=== PATIENT | female | born 1935 | race Caucasian/White ===

== ENCOUNTER 2016-01-22 09:51 | Outpatient (RCR) | payer OTHER ==
[~2016-01-22 09:51] MED LIST: ASPIRIN 32325 MG/TAB PO; CALCIUM1 CAP PO; FLEXERIL 1010 MG/TAB PO; INHALER; IPRATROPIUM BROM3 M1 IH; LASIX 40MG TABL40 MG PO; LEVAQUIN 5500 MG/TA1 PO; LORTAB 5/500 501 TAB PO; MOTRIN JUNIOR100 M1 PO; MULTIVITAMIN FO1 CAP PO; NAPROSYN500 MG PO; PERCOCET 325 MG1 TA2 PO; PREDNISONE 5MG5 MG PO; PREDNISONE20 MG PO; PROAIR HFA0.09 MG/AC; PROAIR HFA0.09 MG/AC IH; RT ADVAIR 228 DISKUS; TYLENOL 500MG500 MG PO; TYLENOL EXTRA500 M1 PO; ZOFRAN 4MG T4 MG/TAB PO; ZYRTEC 10MG10 MG PO
== END 2016-04-21 ==
LOC: WSOH
DX: S61.451D Open bite of right hand, subsequent encounter (principal)

== ENCOUNTER → 2016-09-13 | Outpatient (CLI) | payer OTHER, MEDICARE | LOC: MC.RAD 10:40 | DX: Z12.31 Encounter for screening mammogram for malignant neoplasm of breast (principal) ==

== ENCOUNTER 2017-06-24 16:19 | Inpatient (IN) | payer BC, MEDICARE ==
[~2017-06-24] VITALS: Ht 152.4 cm; Wt 64.0 kg
[2017-06-24] MEDS ORDERED: PROAIR HFA0.09 MG/AC IH (16:49)
[2017-06-24] MEDS ORDERED: LEVAQUIN 5500 MG/TA1 PO (16:52)
[2017-06-24] MEDS ORDERED: TUSS PO (16:52)
[2017-06-24 16:57] LABS: BASO % 0.4 % (0.0-2.0); EOS # 0.1 (0.0-0.7); EOS % 1.9 % (0-4.0); GRAN # 4.9 (1.4-6.5); GRAN % 70.2 % (42.2-75.2); HEMATOCRIT 36.3 % (37.0-47.0); HEMOGLOBIN 11.7 g/dl (12.5-16.0); LYMPH # 1.4 (1.2-3.4); LYMPH % 19.8 % (20.0-51.0); MEAN CELL VOLUME 93 fl (80.0-100.0); MEAN CORPUSCULAR HEMOGLOBIN 30 pg (27.0-31.0); MEAN CORPUSCULAR HGB CONC 32 g/dl (33.0-37.0); MEAN PLATELET VOLUME 9.4 fl (7.4-10.4); MONO # 0.4 (0.1-0.6); MONO % 5.5 % (1.7-9.3); PLATELET COUNT 320 K/mm3 (130-400); RED BLOOD COUNT 3.89 M/mm3 (4.10-5.30); REDCELL DISTRIBUTION WIDTH-CV 12.5 % (11.5-14.5)
[2017-06-24 17:01] LABS: INR 1.2 (0.8-3.0)
[2017-06-24 17:09] LABS: ALANINE AMINOTRANSFERASE 43 U/L (9-52); ALKALINE PHOSPHATASE 75 U/L (50-136); ANION GAP 12 mmol/L (7-16); AST,SGOT 21 U/L (15-37); BILIRUBIN,TOTAL 0.2 mg/dL (0.0-1.0); BLOOD UREA NITROGEN 23 mg/dL (7-17); CALCIUM 9.9 mg/dL (8.4-10.2); CARBON DIOXIDE 25 mmol/L (22-30); CHLORIDE 103 mmol/L (98-107); CREATININE, serum 1.11 mg/dL (0.52-1.25); GLUCOSE 112 mg/dL (74-106); POTASSIUM 4.2 mmol/L (3.4-5.0); SODIUM 140 mmol/L (137-145); TOTAL PROTEIN 7.3 gm/dL (6.4-8.2)
[2017-06-24 17:26] LABS: TROPONIN-I < 0.012 ng/mL (0.000-0.034)
[2017-06-24 18:01] LABS: COLLECTION METHOD CLEAN CATCH
[2017-06-24 18:16] LABS: MUCOUS Present /lpf; PH 5 (5-8); SQUAMOUS EPITHELIAL 0-2 /hpf; URINE APPEARANCE Clear; URINE BACTERIA Rare /hpf; URINE BILIRUBIN Negative (NEGATIVE); URINE BLOOD Negative (NEGATIVE); URINE COLOR Yellow; URINE GLUCOSE Negative (NEGATIVE); URINE KETONE Negative (NEGATIVE); URINE LEUKOCYTE ESTERASE Negative (NEGATIVE); URINE NITRATE Negative (NEGATIVE); URINE PROTEIN(semi-quant) Negative (NEGATIVE); URINE UROBILINOGEN Negative (NEGATIVE)
[2017-06-24 20:20] VITALS: BP 119/64; PULSE 85; TEMP 85; TEMP 97.5; TEMP 98.5
[2017-06-25 01:02] VITALS: BP 99/64; PULSE 79; TEMP 98.2
[2017-06-25 05:09] VITALS: BP 141/85; PULSE 74; TEMP 98.7
[2017-06-25 06:56] LABS: MEAN CELL VOLUME 93 fl (80.0-100.0); MEAN CORPUSCULAR HGB CONC 32 g/dl (33.0-37.0); MEAN PLATELET VOLUME 9.5 fl (7.4-10.4); PLATELET COUNT 288 K/mm3 (130-400); RED BLOOD COUNT 3.32 M/mm3 (4.10-5.30); REDCELL DISTRIBUTION WIDTH-CV 12.5 % (11.5-14.5)
[2017-06-25 07:01] LABS: CALCIUM 8.9 mg/dL (8.4-10.2); CREATININE, serum 1.08 mg/dL (0.52-1.25); POTASSIUM 4.2 mmol/L (3.4-5.0)
[2017-06-25 07:11] LABS: HEMATOCRIT 30.8 % (37.0-47.0); HEMOGLOBIN 9.9 g/dl (12.5-16.0); MEAN CORPUSCULAR HEMOGLOBIN 30 pg (27.0-31.0)
[2017-06-25 07:36] VITALS: BP 135/51; PULSE 76; TEMP 98.4
[2017-06-25 09:45] LABS: BAND 4 % (0-10); BASOPHIL 1 % (0-2); LYMPHOCYTE 31 % (20.0-51.0); MYELOCYTE 1 % (0-0); NEUTROPHILS 63 % (42.0-75.2); OVALOCYTES 1+; PLATELET ESTIMATE NORMAL (NORMAL)
[2017-06-25 11:56] VITALS: BP 129/53; PULSE 68; TEMP 98
[2017-06-25 15:10] VITALS: BP 111/40; PULSE 80; TEMP 98.7
[2017-06-25 20:26] VITALS: BP 143/44; PULSE 93; TEMP 98.7
[2017-06-26] VITALS (7 sets, daily range): BP systolic 108–136; BP diastolic 42–61; PULSE 62–81; TEMP 98.1–98.9
[2017-06-26 06:53] LABS: BASO % 0.5 % (0.0-2.0); EOS # 0.2 (0.0-0.7); EOS % 2.7 % (0-4.0); GRAN # 3.5 (1.4-6.5); GRAN % 61.9 % (42.2-75.2); LYMPH # 1.7 (1.2-3.4); LYMPH % 29.3 % (20.0-51.0); MEAN CELL VOLUME 93 fl (80.0-100.0); MEAN CORPUSCULAR HGB CONC 32 g/dl (33.0-37.0); MEAN PLATELET VOLUME 9.8 fl (7.4-10.4); MONO # 0.2 (0.1-0.6); MONO % 4.2 % (1.7-9.3); PLATELET COUNT 318 K/mm3 (130-400); REDCELL DISTRIBUTION WIDTH-CV 12.5 % (11.5-14.5)
[2017-06-26 07:09] LABS: CALCIUM 8.8 mg/dL (8.4-10.2); CREATININE, serum 1.01 mg/dL (0.52-1.25); PHOSPHOROUS 3.4 mg/dL (2.5-4.5); POTASSIUM 3.7 mmol/L (3.4-5.0)
[2017-06-26 07:10] LABS: HEMATOCRIT 32.7 % (37.0-47.0); HEMOGLOBIN 10.4 g/dl (12.5-16.0); MEAN CORPUSCULAR HEMOGLOBIN 30 pg (27.0-31.0)
[2017-06-27 04:22] VITALS: BP 130/65; PULSE 66; TEMP 98.6
[2017-06-27 06:45] LABS: BASO % 0.7 % (0.0-2.0); EOS # 0.2 (0.0-0.7); EOS % 2.8 % (0-4.0); GRAN # 4.1 (1.4-6.5); GRAN % 69.1 % (42.2-75.2); LYMPH # 1.3 (1.2-3.4); LYMPH % 21.9 % (20.0-51.0); MEAN CELL VOLUME 94 fl (80.0-100.0); MEAN CORPUSCULAR HGB CONC 32 g/dl (33.0-37.0); MEAN PLATELET VOLUME 9.9 fl (7.4-10.4); MONO # 0.3 (0.1-0.6); MONO % 4.7 % (1.7-9.3); PLATELET COUNT 294 K/mm3 (130-400); RED BLOOD COUNT 3.29 M/mm3 (4.10-5.30); REDCELL DISTRIBUTION WIDTH-CV 12.4 % (11.5-14.5)
[2017-06-27 07:00] LABS: CALCIUM 8.9 mg/dL (8.4-10.2); CREATININE, serum 1.03 mg/dL (0.52-1.25); MAGNESIUM 1.9 mg/dL (1.6-2.3); PHOSPHOROUS 3.8 mg/dL (2.5-4.5)
[2017-06-27 07:02] LABS: HEMATOCRIT 30.9 % (37.0-47.0); HEMOGLOBIN 9.9 g/dl (12.5-16.0); MEAN CORPUSCULAR HEMOGLOBIN 30 pg (27.0-31.0)
[2017-06-27 07:03] LABS: POTASSIUM 4.2 mmol/L (3.4-5.0)
[2017-06-27 08:13] VITALS: BP 130/52; PULSE 93; TEMP 98.6
[2017-06-27 11:25] VITALS: BP 129/54; PULSE 84; TEMP 99
[2017-06-27 15:34] VITALS: BP 140/60; PULSE 67; TEMP 98.6
[2017-06-27 20:05] VITALS: BP 150/57; PULSE 82; TEMP 98.6
[2017-06-28 00:52] VITALS: BP 141/61; PULSE 74; TEMP 98.6
[2017-06-28 04:57] VITALS: BP 112/95; PULSE 81; TEMP 98.6
[2017-06-28 06:35] LABS: BASO % 0.5 % (0.0-2.0); EOS # 0.2 (0.0-0.7); EOS % 2.3 % (0-4.0); GRAN # 4.9 (1.4-6.5); GRAN % 76.6 % (42.2-75.2); LYMPH # 1.1 (1.2-3.4); LYMPH % 16.4 % (20.0-51.0); MEAN CELL VOLUME 93 fl (80.0-100.0); MEAN CORPUSCULAR HGB CONC 32 g/dl (33.0-37.0); MONO # 0.2 (0.1-0.6); MONO % 3.6 % (1.7-9.3); PLATELET COUNT 307 K/mm3 (130-400); RED BLOOD COUNT 3.28 M/mm3 (4.10-5.30); REDCELL DISTRIBUTION WIDTH-CV 12.7 % (11.5-14.5)
[2017-06-28 06:37] LABS: HEMATOCRIT 30.6 % (37.0-47.0); HEMOGLOBIN 9.8 g/dl (12.5-16.0); MEAN CORPUSCULAR HEMOGLOBIN 30 pg (27.0-31.0)
[2017-06-28 06:52] LABS: CALCIUM 9.1 mg/dL (8.4-10.2); CREATININE, serum 0.93 mg/dL (0.52-1.25)
[2017-06-28 08:16] VITALS: BP 116/57; PULSE 98; TEMP 98.4
[2017-06-28 11:10] VITALS: BP 131/54; PULSE 79; TEMP 98.1
[2017-06-28 16:05] VITALS: BP 123/57; PULSE 85; TEMP 98.5
[2017-06-28 19:46] VITALS: BP 141/59; PULSE 90; TEMP 98.6
[2017-06-29 00:05] VITALS: BP 130/40; PULSE 77; TEMP 98.6
[2017-06-29 05:02] VITALS: BP 136/68; PULSE 76; TEMP 98.5
[2017-06-29 06:51] LABS: BASO % 0.5 % (0.0-2.0); EOS # 0.2 (0.0-0.7); EOS % 3.4 % (0-4.0); GRAN # 4.7 (1.4-6.5); GRAN % 73.9 % (42.2-75.2); LYMPH # 1.1 (1.2-3.4); LYMPH % 17.2 % (20.0-51.0); MEAN CELL VOLUME 93 fl (80.0-100.0); MEAN CORPUSCULAR HGB CONC 32 g/dl (33.0-37.0); MEAN PLATELET VOLUME 9.7 fl (7.4-10.4); MONO # 0.3 (0.1-0.6); MONO % 4.4 % (1.7-9.3); PLATELET COUNT 297 K/mm3 (130-400); RED BLOOD COUNT 3.15 M/mm3 (4.10-5.30); REDCELL DISTRIBUTION WIDTH-CV 12.9 % (11.5-14.5)
[2017-06-29 07:04] LABS: CALCIUM 9.1 mg/dL (8.4-10.2); CREATININE, serum 0.91 mg/dL (0.52-1.25); POTASSIUM 3.7 mmol/L (3.4-5.0)
[2017-06-29 07:14] LABS: HEMATOCRIT 29.4 % (37.0-47.0); HEMOGLOBIN 9.4 g/dl (12.5-16.0); MEAN CORPUSCULAR HEMOGLOBIN 30 pg (27.0-31.0)
[2017-06-29 07:40] VITALS: BP 139/60; PULSE 87; TEMP 98.7
[2017-06-29] MEDS ORDERED: MUCINEX1200 MG PO (09:36)
[2017-06-29] MEDS ORDERED: PROBIOTIC ACID1 EAC3 PO (09:36)
[2017-06-29] MEDS ORDERED: Florastor PO (09:37)
[2017-06-29] MEDS ORDERED: ZOSYN 50 ML50 ML IV (09:44)
[2017-06-29] MEDS ORDERED: VANCOCIN HCL1 GM IV (09:44)
[2017-06-29 11:31] VITALS: BP 117/41; PULSE 88; TEMP 98.4
[2017-06-29] MEDS ORDERED: VANCOCIN HCL 5200 ML IV (13:23)
[2017-06-29 15:26] VITALS: BP 150/88; PULSE 81; TEMP 98
== END 2017-06-29 17:30 | disposition home or self-care (01) | DRG 194 ==
LOC: COL.ER 16:19 → MEDICAL 18:37
PROVIDERS: Emergency Medicine; Internal Medicine; Nurse Practitioner; Physician Assistant
PROC: 02HV33Z Insertion of Infusion Device into Superior Vena Cava, Percutaneous Approach (ICD-10-PCS; principal; 2017-06-27)
DX: J18.9 Pneumonia, unspecified organism (principal); J44.0 Chronic obstructive pulmonary disease with (acute) lower respiratory infection; D64.9 Anemia, unspecified; Z87.891 Personal history of nicotine dependence
CPT/HCPCS: 99222; 99222-AI; 99231-AI; 99232-AI; 99233-AI; 99239; C1751; C1894; J0456; J0696; J1644; J1650; J2543; J3370; J7030; J7050

== ENCOUNTER → 2017-07-01 | Outpatient (CLI) | payer BC, MEDICARE ==
[~2017-07-01] MED LIST changes: +Florastor PO; +MUCINEX1200 MG PO; +PROBIOTIC ACID1 EAC3 PO; +TUSS PO; +VANCOCIN HCL 5200 ML IV; +VANCOCIN HCL1 GM IV; +ZOSYN 50 ML50 ML IV
[2017-07-01 15:56] LABS: CALCIUM 9.1 mg/dL (8.4-10.2); CREATININE, serum 0.96 mg/dL (0.52-1.25)
[2017-07-01 16:14] LABS: VANCOMYCIN TROUGH 24.2 ug/mL (7.00-20.00)
== END ==
LOC: ZCOL.LAB 15:51
PROVIDERS: Family Medicine
DX: Z51.81 Encounter for therapeutic drug level monitoring (principal); J18.9 Pneumonia, unspecified organism

== ENCOUNTER → 2017-07-04 | Outpatient (CLI) | payer BC, MEDICARE | LOC: ZCOL.LAB 15:53 | DX: J18.9 Pneumonia, unspecified organism (principal); Z51.81 Encounter for therapeutic drug level monitoring ==

== ENCOUNTER → 2017-08-30 | Outpatient (CLI) | payer BC, MEDICARE ==
[2017-08-30 17:56] LABS: HEMOGLOBIN 11.1 g/dl (12.5-16.0); MEAN CELL VOLUME 91 fl (80.0-100.0); MEAN CORPUSCULAR HEMOGLOBIN 30 pg (27.0-31.0); MEAN CORPUSCULAR HGB CONC 33 g/dl (33.0-37.0); PLATELET COUNT 238 K/mm3 (130-400); RED BLOOD COUNT 3.71 M/mm3 (4.10-5.30); REDCELL DISTRIBUTION WIDTH-CV 13.7 % (11.5-14.5)
[2017-08-30 17:58] LABS: HEMATOCRIT 33.7 % (37.0-47.0)
[2017-08-31 15:14] LABS: PROCALCITONIN 0.06 ng/mL (0.00-0.09)
== END ==
LOC: COL.LAB 17:31
PROVIDERS: Internal Medicine Pulmonary Disease
DX: R05 Cough (principal)

== ENCOUNTER 2019-05-26 11:13 | Emergency (ER) | payer MEDICARE, OTHER ==
[~2019-05-26] VITALS: Ht 152.4 cm; Wt 64.5 kg
[~2019-05-26 11:13] MED LIST changes: +MOTRIN 400400 MG/TAB PO; +OMNICEF 300MG300 MG PO; +PROTONIX 40MG T40 MG PO; +SORE THROAT LOZ1 LO1 MM
[2019-05-26] MEDS ORDERED: VITAMIN D 50,1.25 MG PO (11:58)
[2019-05-26] MEDS ORDERED: CALCIUM CARB500 MG PO (11:58)
[2019-05-26 12:29] LABS: ALANINE AMINOTRANSFERASE 14 U/L (9-52); ALBUMIN 4.3 gm/dL (3.5-5.0); ALKALINE PHOSPHATASE 83 U/L (50-136); ANION GAP 7 mmol/L (7-16); AST,SGOT 25 U/L (15-37); BILIRUBIN,TOTAL 0.4 mg/dL (0.0-1.0); BLOOD UREA NITROGEN 28 mg/dL (7-17); CALCIUM 9.9 mg/dL (8.4-10.2); CARBON DIOXIDE 27 mmol/L (22-30); CHLORIDE 107 mmol/L (98-107); CREATININE, serum 1.01 (0.52-1.25); GLUCOSE 102 mg/dL (74-106); MAGNESIUM 1.8 mg/dL (1.6-2.3); POTASSIUM 4.1 mmol/L (3.4-5.0); SODIUM 141 mmol/L (137-145); TOTAL PROTEIN 7.4 gm/dL (6.4-8.2)
[2019-05-26 12:32] LABS: BASO % 0.4 % (0.0-2.0); EOS # 0.1 (0.0-0.7); EOS % 1.7 % (0-4.0); GRAN # 3.6 (1.4-6.5); GRAN % 66.6 % (42.2-75.2); HEMATOCRIT 37.8 % (37.0-47.0); HEMOGLOBIN 12.2 g/dl (12.5-16.0); LYMPH # 1.4 (1.2-3.4); LYMPH % 25.2 % (20.0-51.0); MEAN CELL VOLUME 93 fl (80.0-100.0); MEAN CORPUSCULAR HEMOGLOBIN 30 pg (27.0-31.0); MEAN CORPUSCULAR HGB CONC 32 g/dl (33.0-37.0); MEAN PLATELET VOLUME 10.7 fl (7.4-10.4); MONO # 0.3 (0.1-0.6); MONO % 5.7 % (1.7-9.3); PLATELET COUNT 240 K/mm3 (130-400); RED BLOOD COUNT 4.05 M/mm3 (4.10-5.30); REDCELL DISTRIBUTION WIDTH-CV 12.9 % (11.5-14.5)
[2019-05-26 12:41] LABS: C-REACTIVE PROTEIN < 0.5 mg/dL (0.0-0.9)
[2019-05-26 13:45] LABS: COLLECTION METHOD CLEAN CATCH
[2019-05-26 14:17] LABS: MUCOUS Present /lpf; PH 6 (5-8); SQUAMOUS EPITHELIAL None Seen /hpf; URINE APPEARANCE Cloudy; URINE BACTERIA None Seen /hpf; URINE BILIRUBIN Negative (NEGATIVE); URINE BLOOD 3+ (NEGATIVE); URINE COLOR Amber; URINE GLUCOSE Negative (NEGATIVE); URINE KETONE Negative (NEGATIVE); URINE LEUKOCYTE ESTERASE Negative (NEGATIVE); URINE NITRATE Negative (NEGATIVE); URINE PROTEIN(semi-quant) 2+ (NEGATIVE); URINE RBC >50 /hpf; URINE UROBILINOGEN Negative (NEGATIVE)
[2019-05-26] MEDS ORDERED: CEFTIN500 MG PO (15:07)
[2019-05-26 15:30] VITALS: BP 152/72; PULSE 61; TEMP 98.2
== END 2019-05-26 16:00 | disposition home or self-care (01) ==
LOC: COL.ER 11:13
PROVIDERS: Emergency Medicine
DX: N30.91 Cystitis, unspecified with hematuria (principal)
CPT/HCPCS: A4216; J0696; J7030; Q9967

== ENCOUNTER → 2019-08-16 | Outpatient (CLI) | payer MEDICARE ==
[~2019-08-16] MED LIST changes: +CALCIUM CARB500 MG PO; +CEFTIN500 MG PO; +VITAMIN D 50,1.25 MG PO
== END ==
LOC: COL.VAS 08:41
DX: I65.23 Occlusion and stenosis of bilateral carotid arteries (principal); I08.3 Combined rheumatic disorders of mitral, aortic and tricuspid valves; H34.01 Transient retinal artery occlusion, right eye

== ENCOUNTER 2019-12-05 08:57 | Day surgery (SDC) | payer MEDICARE ==
[2019-12-05] VITALS (12 sets, daily range): BP systolic 116–155; BP diastolic 37–93; PULSE 51–78; TEMP 97.5–98.3
[~2019-12-05] VITALS: Ht 152.4 cm; Wt 65.7 kg
[2019-12-05] MEDS ORDERED: ASPIRIN 81M81 MG/TA2 PO (10:24)
[2019-12-05] MEDS ORDERED: NAMENDA 10MG TA10 MG PO (10:26)
[2019-12-05] MEDS ORDERED: ASMANEX HFA13 G2 IH (10:27)
[2019-12-05] MEDS ORDERED: PROVENTIL0.09 MG/A1 IH (10:29)
[2019-12-05] MEDS ORDERED: MASON NATURAL2000 IU PO (13:13)
[2019-12-06 03:49] VITALS: BP 121/40; PULSE 61; TEMP 98.1
[2019-12-06 08:04] VITALS: BP 114/40; PULSE 86; TEMP 98.2
[2019-12-06 12:16] VITALS: BP 120/50; PULSE 88; TEMP 99.6
[2019-12-06 15:28] VITALS: BP 111/76; PULSE 60; TEMP 98.4
== END 2019-12-06 16:18 | disposition home or self-care (01) ==
LOC: SDCO 08:57 → SURG 13:02 → SDCO 12-06 16:18
DX: C67.4 Malignant neoplasm of posterior wall of bladder (principal); Z20.828 Contact with and (suspected) exposure to other viral communicable diseases; Z98.51 Tubal ligation status; Z79.899 Other long term (current) drug therapy
CPT/HCPCS: OP; C1769; C2617; J0690; J1100; J1885; J2405; J2704; J3010; J3480; J7120; J9280; Q9967

== ENCOUNTER 2020-02-19 11:35 | Day surgery (SDC) | payer MEDICARE ==
[2020-02-19] VITALS (7 sets, daily range): BP systolic 117–153; BP diastolic 41–65; PULSE 64–80; TEMP 97.5–98.3
[~2020-02-19] VITALS: Ht 152.4 cm; Wt 64.4 kg
[~2020-02-19 11:35] MED LIST changes: +ASMANEX HFA13 G2 IH; +ASPIRIN 81M81 MG/TA2 PO; -CALCIUM CARB500 MG PO; +MASON NATURAL2000 IU PO; +NAMENDA 10MG TA10 MG PO; +OSCAL 500 TAB500 MG PO; +PROVENTIL0.09 MG/A1 IH
--- NOTE | 2020-02-19 14:05 | NUR ---
The patient was taken back via cart to the operating room at this time. The patient's chart was sent with her to surgery. The patient's belongings were taken over to the recovery room where they will be transferred up with her to the 3rd floor post operatively.
[2020-02-19] MEDS ORDERED: PYRIDIUM 100MG100 MG PO (14:40)
--- NOTE | 2020-02-19 15:15 | NUR ---
The patient arrived back to [place] [facility] from the recovery room at this time. The patient appears alert and oriented and denies any pain or nausea at this time. The patient's post operative vital signs were started at this time. The patient agrees to try some coffee and a muffin at this time. The patient's daughter was brought back to be at her bedside. Call light is within reach. Will continue to monitor the patient.
--- NOTE | 2020-02-19 15:30 | NUR ---
The patient appears to be tolerating the food and drink well. Vital signs appear stable. Call light remains within reach. Will continue to monitor the patient.
--- NOTE | 2020-02-19 15:45 | NUR ---
The patient has finished her food and drink and appeared to tolerate both well. The patient denies any pain or nausea at this time. The patient was weaned to room air and appears to be tolerating it well. Will continue to monitor the patient.
--- NOTE | 2020-02-19 16:00 | NUR ---
The patient ambulated to the bathroom with the stand by assistance of one nurse and appeared to tolerate the activity well. The patient was unable to void at this time. The patient was help back to her room and given some water at this time.
--- NOTE | 2020-02-19 16:30 | NUR ---
The patient was given a fresh glass of water at this time. The patient's daughter remains at her bedside at this time. Will continue to monitor the patient.
--- NOTE | 2020-02-19 17:10 | NUR ---
The patient is sitting up on the side of her bed and appears to be resting comfortably at this time. The patient's IV appears to be leaking and was removed at this time. The patient denies feeling the urge to void at this time. Will continue to monitor the patient.
--- NOTE | 2020-02-19 17:30 | NUR ---
Discharge instructions were reviewed with the patient and her daughter at this time. They both verbalized understanding and have no questions for the nurse at this time. The patient is dressed and ready to be escorted out.
--- NOTE | 2020-02-19 17:40 | NUR ---
The patient was escorted out via wheelchair to a private vehicle by JUS Lucio. The patient's belongings and discharge paperwork were sent with her. The patient's daughter is present to drive her home.
== END 2020-02-19 17:40 | disposition home or self-care (01) ==
LOC: SDCO 11:35
DX: C67.2 Malignant neoplasm of lateral wall of bladder (principal); Z79.82 Long term (current) use of aspirin; Z79.899 Other long term (current) drug therapy; N30.00 Acute cystitis without hematuria; J44.9 Chronic obstructive pulmonary disease, unspecified; Z99.81 Dependence on supplemental oxygen; Z87.891 Personal history of nicotine dependence; Z20.828 Contact with and (suspected) exposure to other viral communicable diseases
CPT/HCPCS: J0690; J2405; J2704; J3010; J7120

== ENCOUNTER 2020-05-07 18:41 | Observation (INO) | payer MEDICARE ==
[~2020-05-07] VITALS: Ht 152.4 cm; Wt 63.6 kg
[~2020-05-07 18:41] MED LIST changes: +PYRIDIUM 100MG100 MG PO
[2020-05-07 19:19] LABS: BASO % 0.4 % (0.0-2.0); EOS # 0.2 (0.0-0.7); EOS % 2.7 % (0-4.0); GRAN # 4.5 (1.4-6.5); GRAN % 66.1 % (42.2-75.2); HEMATOCRIT 38.3 % (37.0-47.0); HEMOGLOBIN 12.4 g/dl (12.5-16.0); LYMPH # 1.7 (1.2-3.4); LYMPH % 25.2 % (20.0-51.0); MEAN CELL VOLUME 91 fl (80.0-100.0); MEAN CORPUSCULAR HEMOGLOBIN 29 pg (27.0-31.0); MEAN CORPUSCULAR HGB CONC 32 g/dl (33.0-37.0); MEAN PLATELET VOLUME 10.5 fl (7.4-10.4); MONO # 0.4 (0.1-0.6); MONO % 5.5 % (1.7-9.3); PLATELET COUNT 259 K/mm3 (130-400); RED BLOOD COUNT 4.23 M/mm3 (4.10-5.30); REDCELL DISTRIBUTION WIDTH-CV 13.2 % (11.5-14.5)
[2020-05-07 19:34] LABS: ALANINE AMINOTRANSFERASE 14 U/L (4-34); ALBUMIN 4.3 gm/dL (3.5-5.0); ALKALINE PHOSPHATASE 84 U/L (50-136); ANION GAP 8 mmol/L (7-16); AST,SGOT 25 U/L (15-37); BILIRUBIN,TOTAL 0.4 mg/dL (0.0-1.0); BLOOD UREA NITROGEN 31 mg/dL (7-17); CALCIUM 10.1 mg/dL (8.4-10.2); CARBON DIOXIDE 26 mmol/L (22-30); CHLORIDE 106 mmol/L (98-107); CREATININE, serum 1.19 (0.52-1.25); GLUCOSE 102 mg/dL (74-106); LIPASE 38 U/L (23-300); POTASSIUM 4.3 mmol/L (3.4-5.0); SODIUM 139 mmol/L (137-145); TOTAL PROTEIN 7.5 gm/dL (6.4-8.2)
[2020-05-07 19:37] LABS: C-REACTIVE PROTEIN < 0.5 mg/dL (0.0-0.9)
[2020-05-07 19:47] LABS: TROPONIN-I < 0.012 ng/mL (0.000-0.035)
[2020-05-07 22:08] LABS: COLLECTION METHOD CLEAN CATCH
[2020-05-07 22:18] LABS: PH 5 (5-8); SQUAMOUS EPITHELIAL 0-2 /hpf; URINE APPEARANCE Clear; URINE BACTERIA None Seen /hpf; URINE BILIRUBIN Negative (NEGATIVE); URINE BLOOD 3+ (NEGATIVE); URINE COLOR Yellow; URINE GLUCOSE Negative (NEGATIVE); URINE KETONE Negative (NEGATIVE); URINE LEUKOCYTE ESTERASE Trace (NEGATIVE); URINE NITRATE Negative (NEGATIVE); URINE PROTEIN(semi-quant) Negative (NEGATIVE); URINE RBC >50 /hpf; URINE UROBILINOGEN Negative (NEGATIVE)
[2020-05-08] VITALS (13 sets, daily range): BP systolic 106–154; BP diastolic 44–93; PULSE 65–84; TEMP 98–98.6
--- NOTE | 2020-05-08 08:44 | NUR ---
KAILEY IN ENDO STATED SHE WOULD NOTIFY ANESTHESIA OF PROCEDURE.
--- NOTE | 2020-05-08 09:15 | NUR ---
PT AOX4, MEDS HELD PER DISBROW ORDER DUE TO EGD IN AM, CONSENT OBTAINED, PT DENIES NAUSEA OR PAIN AT THIS TIME, PT ASSESSMENT PERFORMED, COVID SWAB OBTAINED, NO OTHER NEEDS AT THIS TIME.
--- NOTE | 2020-05-08 09:30 | NUR ---
SW met with the patient to discuss discharge plan. The patient lives alone in [place]. She states that both her daughters: Natalie Roberts (ph#[phone]) and Christie Mancia (ph#[phone]) live nearby her. She reports independence with ADLs and does not use any ambulatory devices. She has nocturnal oxygen from [employer]. The patient's PCP is Dr. Lore Christian and she receives her medications from [facility] in [facility]. She reports no difficulties obtaining her meds. The patient's DPOA-HC is in EMR and it designates her daughter, Natalie. The patient plans to return home upon discharge. SW then contacted and reviewed the d/c plan with her daughter, Natalie. Natalie reports no concerns with the patient returning home upon discharge. She states that her and her sister live close by and will come and pick her up when she is ready to d/c. SW to follow as needed.
--- NOTE | 2020-05-08 10:26 | NUR ---
FAMILY UPDATED IN AM, UPDATED AGAIN JUST NOW, FAMILY REPORTS SHE WILL CALL AROUND 1400.
--- NOTE | 2020-05-08 10:33 | NUR ---
PT TAKEN DOWN FOR PROCEDURE
--- NOTE | 2020-05-08 11:48 | NUR ---
PT RETURNED TO ROOM, PT AOX4, NOT REPORTING PAIN, FLUIDS HOOKED UP, PT REQUESTING FOOD.
--- NOTE | 2020-05-08 12:37 | NUR ---
PLACED PT ON 2L OXYGEN DUE TO PT SATTING 89% ON ROOM AIR.
--- NOTE | 2020-05-08 14:11 | NUR ---
pt daughter updated.
--- NOTE | 2020-05-08 18:04 | NUR ---
PT DENIES PAIN/DISCOMFORT, EGD PERFORMED TODAY, NO N/V WITH EATING CLD, HAS GOOD APPETITE AND MEDIOCRE ORAL FLUID INTAKE, STILL ON FLUIDS @75ML/HR, NO OTHER NEEDS, DENIES PAIN/DISCOMFORT.
[2020-05-08 19:01] LABS: HEMOGLOBIN 11.4 g/dl (12.5-16.0); MEAN CELL VOLUME 92 fl (80.0-100.0); MEAN CORPUSCULAR HEMOGLOBIN 29 pg (27.0-31.0); MEAN CORPUSCULAR HGB CONC 32 g/dl (33.0-37.0); MEAN PLATELET VOLUME 10.3 fl (7.4-10.4); PLATELET COUNT 222 K/mm3 (130-400); RED BLOOD COUNT 3.92 M/mm3 (4.10-5.30); REDCELL DISTRIBUTION WIDTH-CV 13.1 % (11.5-14.5)
[2020-05-08 19:06] LABS: HEMATOCRIT 36.2 % (37.0-47.0)
[2020-05-08 19:14] LABS: ALBUMIN 3.7 gm/dL (3.5-5.0); BILIRUBIN,TOTAL 0.2 mg/dL (0.0-1.0); CALCIUM 9.4 mg/dL (8.4-10.2); CREATININE, serum 1.06 (0.52-1.25); POTASSIUM 4.7 mmol/L (3.4-5.0); TOTAL PROTEIN 6.8 gm/dL (6.4-8.2)
[2020-05-09 03:52] VITALS: BP 146/54; PULSE 83; TEMP 98.3
--- NOTE | 2020-05-09 06:58 | NUR ---
PT SLEEPING COMFORTABLY, FLUIDS NOT HOOKED UP AT THIS TIME.
[2020-05-09 08:07] VITALS: BP 150/55; PULSE 78; TEMP 98.5
--- NOTE | 2020-05-09 08:43 | NUR ---
PT VERY PLEASANT, INDEPENDENT IN ROOM, MAKING BED UPON ENTRY. PT ATE 100% OF BREAKFAST, PT REPORTS NO PAIN/N/V. EXCITED FOR DISCHARGE. CALL LIGHT AT BEDSIDE, GLASSESS ON BEDSIDE TABLE, NO OTHER NEEDS AT THIS TIME.
--- NOTE | 2020-05-09 08:50 | NUR ---
PT PLEASANT, AOX4, PT HAS GREAT ORAL INTAKE, ATE 100% BREAKFAST.
--- NOTE | 2020-05-09 11:31 | NUR ---
CALLED PT DAUGHTER BAYRON FOR PT RIDE.
--- NOTE | 2020-05-09 12:05 | NUR ---
DISCHARGE EDUCATION PROVIDED, INT REMOVED, NO OTHER NEEDS AT THIS TIME
--- NOTE | 2020-05-09 12:30 | NUR ---
PT TAKEN DOWN VIA WHEELCHAIR WITH BELONGINGS AND DISCHARGE PAPERWORK, NO OTHER NEEDS.
== END 2020-05-09 12:30 | disposition home or self-care (01) ==
LOC: COL.ER 18:41 → MEDICAL 23:14
PROVIDERS: Nurse Practitioner; ADMIT Student in an Organized Health Care Education/Training Program
DX: T18.128A Food in esophagus causing other injury, initial encounter (principal); R13.12 Dysphagia, oropharyngeal phase; J44.9 Chronic obstructive pulmonary disease, unspecified; D64.9 Anemia, unspecified; R09.02 Hypoxemia; Z85.51 Personal history of malignant neoplasm of bladder; Z79.82 Long term (current) use of aspirin; Z87.891 Personal history of nicotine dependence; N39.0 Urinary tract infection, site not specified; F03.90 Unspecified dementia, unspecified severity, without behavioral disturbance, psychotic disturbance, mood disturbance, and anxiety; Z20.822 Contact with and (suspected) exposure to COVID-19
CPT/HCPCS: 99223-AI; 99232-AI; G0008; G0378; J0696; J1610; J1650; J2405; J2704; J7030; Q9967

== ENCOUNTER 2020-05-23 11:42 | Emergency (ER) | payer MEDICARE ==
[~2020-05-23] VITALS: Ht 152.4 cm; Wt 63.6 kg
[2020-05-23 11:52] VITALS: TEMP 97.6
[2020-05-23 12:05] VITALS: BP 163/85
[2020-05-23 12:31] LABS: BASO % 0.5 % (0.0-2.0); EOS # 0.1 (0.0-0.7); EOS % 2.3 % (0-4.0); GRAN # 4.5 (1.4-6.5); GRAN % 72.2 % (42.2-75.2); HEMATOCRIT 37.5 % (37.0-47.0); HEMOGLOBIN 11.9 g/dl (12.5-16.0); LYMPH # 1.2 (1.2-3.4); LYMPH % 19.3 % (20.0-51.0); MEAN CELL VOLUME 92 fl (80.0-100.0); MEAN CORPUSCULAR HEMOGLOBIN 29 pg (27.0-31.0); MEAN CORPUSCULAR HGB CONC 32 g/dl (33.0-37.0); MEAN PLATELET VOLUME 10.4 fl (7.4-10.4); MONO # 0.3 (0.1-0.6); MONO % 5.4 % (1.7-9.3); PLATELET COUNT 256 K/mm3 (130-400); RED BLOOD COUNT 4.07 M/mm3 (4.10-5.30); REDCELL DISTRIBUTION WIDTH-CV 13.2 % (11.5-14.5)
[2020-05-23 12:39] LABS: ALBUMIN 4.2 gm/dL (3.5-5.0); BILIRUBIN,TOTAL 0.5 mg/dL (0.0-1.0); CALCIUM 9.9 mg/dL (8.4-10.2); CREATININE, serum 1.03 (0.52-1.25); POTASSIUM 4.4 mmol/L (3.4-5.0); TOTAL PROTEIN 7.3 gm/dL (6.4-8.2)
[2020-05-23 13:18] VITALS: PULSE 75
== END 2020-05-23 13:18 | disposition home or self-care (01) ==
LOC: COL.ER 11:42
PROVIDERS: Family Medicine
DX: S51.811A Laceration without foreign body of right forearm, initial encounter (principal); S00.83XA Contusion of other part of head, initial encounter; R11.10 Vomiting, unspecified; J44.9 Chronic obstructive pulmonary disease, unspecified; F03.90 Unspecified dementia, unspecified severity, without behavioral disturbance, psychotic disturbance, mood disturbance, and anxiety; Z85.51 Personal history of malignant neoplasm of bladder; Z79.51 Long term (current) use of inhaled steroids; Z79.82 Long term (current) use of aspirin; W01.10XA Fall on same level from slipping, tripping and stumbling with subsequent striking against unspecified object, initial encounter

== ENCOUNTER 2020-09-19 05:13 | Day surgery (SDC) | payer MEDICARE ==
[~2020-09-19] VITALS: Ht 152.4 cm; Wt 64.5 kg
[2020-09-19] VITALS (12 sets, daily range): BP systolic 106–137; BP diastolic 40–66; PULSE 62–77; TEMP 97.8–98.8
[2020-09-19] MEDS ORDERED: ONE-A-DAY WOMEN1 TAB PO (06:30)
[2020-09-19] MEDS ORDERED: ALBUTEROL SULFAT3 M3 IH (06:36)
[2020-09-19] MEDS ORDERED: MOTRIN 400400 MG/TAB PO (10:57)
--- NOTE | 2020-09-19 13:13 | NUR ---
Patient resting in bed. She has done well post op, vitals stable. She had an episode of nausea with breakfast, but it passed & she was able to eat & drink. Ivf to INT. Ramsey to DD with pink tinged output & some sediment noted. CBI at a slow rate. Patient denies pain. Her supportive daughter at bedside. Will continue to montior.
--- NOTE | 2020-09-19 15:32 | NUR ---
Patient complaints of low pelvis pain. Tyelnol did not relieve the pain, B&O given. Attempted to reposition her, She had no interest on lying on a side. She reports she watches alot of TV most days. Stage one pressure ulcer noted to coccyx. High fall risk protocol followed. Will monitor.
--- NOTE | 2020-09-19 17:22 | NUR ---
Patietn overall feeling better. Daughter to stay & have dinner with her. Will monitor
--- NOTE | 2020-09-19 17:42 | NUR ---
Patient sitting up in bed eating dinner. denies complaints. Cbi slowed to very slow drip. very light pink output. Will report off to nightnurse
--- NOTE | 2020-09-19 21:00 | NUR ---
PT IN BED, DAUGHTER AT BEDSIDE. REMINDED PT AND DTR OF VISITING HOURS. PT ALERT, FORGETFUL. BED ALARM SET. HAS SL TO LEFT HAND. HAS CBI AT SLOW RATE, URINE ORANGE. REFUSES COLACE. WATCHING TV, DENIES PAIN.
--- NOTE | 2020-09-19 22:32 | NUR ---
PT CALLS FOR ASSIST TO BATHROOM, FORGETS SHE HAS A CATHETER. ASSISTED TO SINK TO WASH HER HANDS. BACK TO BED. OBANDO CARES GIVEN. REPORTS FEELING LIKE SHE NEEDS TO URINATE, HAND IRRIGATED CATHETER, NO CLOTS. MEDICATED WITH LEVSIN AND NORCO AT THIS TIME FOR PAIN. BED ALARM SET.
[2020-09-20 00:31] VITALS: BP 127/51; PULSE 58; TEMP 97.7
[2020-09-20 05:02] VITALS: BP 108/54; PULSE 84; TEMP 98.7
--- NOTE | 2020-09-20 06:00 | NUR ---
PT RESTED WELL. URINE YELLOW, CBI CLAMPED.
[2020-09-20 07:37] VITALS: BP 108/43; PULSE 60; TEMP 99.2
[2020-09-20 12:15] VITALS: BP 113/48; PULSE 64; TEMP 98.6
--- NOTE | 2020-09-20 14:41 | NUR ---
Plan is to return home with DTR Christie . SW met with patient in room about care. Patient reports that she is fairly independent however she will reside with DTR for a few days until she is more steady. PCP is Dr. Jarrell and Dr. Herndon. Patient reports the use of O2 at night on 2 liters. Obtains medications at [facility], patient reports that she still can drive herself and declined [facility]. Action educated on support services. NF>
[2020-09-20 15:01] VITALS: BP 117/55; PULSE 68; TEMP 98.1
--- NOTE | 2020-09-20 15:15 | NUR ---
Patient ready for discharge & she has voided. 5 times since fulton removed. bloody urine. She has been taking in PO intake adequately without nausea. Patient did request medication for her bladder pain. Levsin, Azo & tylenol per orders. Did speak with Dr. Blackwood & call in script for Levsin to [facility] pharmacy per orders & patient request. Patient wheeled out with all belongings. She is staying with her daughter for the weekend, Daughter feels her mother is ready to go home. Activity & diet restrictions reviewed. Patient daughter aware of follow up appt already scheduled for stent removal & knows to call with any questions or concern.s
== END 2020-09-20 15:54 | disposition home or self-care (01) ==
LOC: SDCO 05:13 → SURG 09:30 → SDCO 09:30
DX: C67.2 Malignant neoplasm of lateral wall of bladder (principal); D64.9 Anemia, unspecified; J44.9 Chronic obstructive pulmonary disease, unspecified; F03.90 Unspecified dementia, unspecified severity, without behavioral disturbance, psychotic disturbance, mood disturbance, and anxiety; Z79.899 Other long term (current) drug therapy; Z79.82 Long term (current) use of aspirin
CPT/HCPCS: OP; C1769; C2617; J0690; J1100; J2405; J2704; J3010; J7120; Q9967

== ENCOUNTER 2021-08-18 12:27 | Day surgery (SDC) | payer MEDICARE ==
[~2021-08-18] VITALS: Ht 154.9 cm; Wt 61.5 kg
[2021-08-18] VITALS (9 sets, daily range): BP systolic 100–186; BP diastolic 33–81; PULSE 71–96; TEMP 97.7–98.1
[~2021-08-18 12:27] MED LIST changes: +ALBUTEROL SULFAT3 M3 IH; +ANTIVERT 25MG25 MG PO; +ONE-A-DAY WOMEN1 TAB PO; +PRAVACHOL 40MG40 MG PO
[2021-08-18] MEDS ORDERED: ASPIRIN 81M81 MG/TA2 PO (13:11)
--- NOTE | 2021-08-18 17:00 | NUR ---
PATIENT ADMITED INTO ROOM 326 POST OP. ORIENTED BUT DROWSY. VSS. DENIES PAIN OR NAUSEA. OBANDO TO DD WITH SMALL AMOUNTS OF ERNIE COLORED URINE NOTED. IV FLUIDS INFUSING VIA PUMP INTO LEFT AC IV. LIQUIDS AT BEDSIDE. HEAD TO TOE ASSESSMENT COMPLETE. SCD'S TO BLE. FAMILY AT BEDSIDE. ORIENTED TO ROOM. CALL LIGHT IN REACH.
--- NOTE | 2021-08-18 20:00 | NUR ---
ASSESSMENT COMPLETE. PT. LYING IN BED WITH FAMILY AT BEDSIDE. A&0. WEARING 1L OF O2. OBANDO SECURED AND DEPENDENT TO DRAINAGE WITH REDISH TINGED URINE. FLUIDS FLOWING INTO LEFT AC SITE. DENIES PAIN OR NAUSEA. CALL LIGHT IN REACH. NO FURTHER NEEDS AT THIS TIME.
[2021-08-19 03:59] VITALS: BP 106/54; PULSE 69; TEMP 97.5
[2021-08-19 08:26] VITALS: BP 113/50; PULSE 65; TEMP 97.6
--- NOTE | 2021-08-19 09:20 | NUR ---
Initial visit; Patient thanked Director Of Labor Relations for looking in on her and offering God's blessings and keeping her in Director Of Labor Relations's prayers.
--- NOTE | 2021-08-19 09:38 | NUR ---
Pt doing well this morning. She is not having any pain complaints at this time. Output in the fulton catheter is red. Pt is to have mitomycin this morning then fulton will be removed. Pt denies any needs, will continue to monitor
--- NOTE | 2021-08-19 10:53 | NUR ---
Fulton catheter drained of bloody urine. Mitomycin instilled in fulton catheter following chemotherapy administration guidelines. Education provided to patient and her daughter. Patient has poor recall but questions and concerns answered by myself and Evelyn Rudolph RN at bedside. Chemo precaution sign placed outside patient room, primary nurse aware of administration as well.
--- NOTE | 2021-08-19 11:00 | NUR ---
Mitomycin has been instilled, plan to discharge this afternoon after fulton catheter has been removed
[2021-08-19 11:50] VITALS: BP 95/45; PULSE 73; TEMP 98.6
--- NOTE | 2021-08-19 13:09 | NUR ---
Reviewed dischrage instructions with pt and her daughter. Discussed follow up appointment and mitomycin instructions. Pt verbalized understanding. Pt currently waiting on her lunch and is then ready for discharge. All questions answered, call light within reach
--- NOTE | 2021-08-19 14:29 | NUR ---
Pt escorted out
== END 2021-08-19 14:15 | disposition home or self-care (01) ==
LOC: SDCO 12:27 → SURG 16:55 → SDCO 08-19 14:15
DX: C67.9 Malignant neoplasm of bladder, unspecified (principal)
CPT/HCPCS: OP; J0690; J1100; J2405; J2704; J3010; J3480; J7120; J9280; Q9967

== ENCOUNTER → 2021-09-23 | Outpatient (CLI) | payer MEDICARE | LOC: COL.RAD 12:30 | DX: C67.2 Malignant neoplasm of lateral wall of bladder (principal); M54.50 Low back pain, unspecified ==

== ENCOUNTER → 2023-01-12 | Outpatient (CLI) | payer MEDICARE ==
[~2023-01-12] MED LIST changes: +AMOXICILLIN 8751 TAB PO; +FLEXERIL5 MG PO; +VITAMIN D 400400 IU PO; +ZOFRAN ODT4 MG PO
[2023-01-12 12:07] LABS: BASO % 0.3 % (0.0-2.0); EOS # 0.1 K/mm3 (0.0-0.7); GRAN # 4.5 K/mm3 (1.4-6.5); GRAN % 75.3 % (42.2-75.2); HEMOGLOBIN 10.4 g/dl (12.5-16.0); LYMPH % 16.7 % (20.0-51.0); MEAN CELL VOLUME 93 fl (80.0-100.0); MEAN CORPUSCULAR HEMOGLOBIN 30 pg (27-31); MEAN CORPUSCULAR HGB CONC 32 g/dl (33.0-37.0); MEAN PLATELET VOLUME 10.3 fl (7.4-10.4); MONO # 0.3 K/mm3 (0.1-0.6); MONO % 5.4 % (1.7-9.3); PLATELET COUNT 226 K/mm3 (130-400); RED BLOOD COUNT 3.51 M/mm3 (4.10-5.30); REDCELL DISTRIBUTION WIDTH-CV 13.4 % (11.5-14.5)
[2023-01-12 12:08] LABS: HEMATOCRIT 32.8 % (37.0-47.0)
[2023-01-12 12:35] LABS: ALBUMIN 3.4 gm/dL (3.4-4.8); BILIRUBIN,TOTAL 0.3 mg/dL (0.2-1.2); CALCIUM 9.8 mg/dL (8.4-10.2); CREATININE, serum 1.61 mg/dL (0.57-1.11); POTASSIUM 4.3 mmol/L (3.5-4.5); TOTAL PROTEIN 6.8 gm/dL (6.2-8.1)
== END ==
LOC: COL.LAB 11:40
PROVIDERS: Family Medicine
DX: R60.0 Localized edema (principal)

== ENCOUNTER 2023-01-19 07:47 | Day surgery (SDC) | payer MEDICARE ==
[~2023-01-19] VITALS: Ht 149.9 cm; Wt 65.9 kg
[2023-01-19] VITALS (13 sets, daily range): BP systolic 94–123; BP diastolic 42–65; PULSE 42–75; TEMP 97.8–98.7
[2023-01-19] MEDS ORDERED: LASIX 20MG TABL20 MG PO (09:08)
[2023-01-19] MEDS ORDERED: KEYTRUDA25 MG/ML IV (09:08)
[2023-01-19] MEDS ORDERED: AMBIEN 5MG TABLE5 MG PO (09:09)
[2023-01-19] MEDS ORDERED: NORCO 325 MG-51 TAB PO (09:09)
[2023-01-19] MEDS ORDERED: CALCIUM 600MG+D1 TAB PO (09:10)
[2023-01-19] MEDS ORDERED: AMOXICILLIN 50500 MG PO (09:11)
[2023-01-19] MEDS ORDERED: VITAMIND3 5000 PO (09:11)
[2023-01-19] MEDS ORDERED: AZO-STANDARD95 MG PO (09:12)
[2023-01-19] MEDS ORDERED: AMOXICILLIN 25250 MG PO (09:12)
--- NOTE | 2023-01-19 12:11 | NUR ---
PT ARRIVED TO ROOM 346. PT IS A&OX3 BUT FREQUENTLY REPEATS SELF. PT STATED DISCOMFORT IN BLADDER, STATES SHE FEELS LIKE SHE NEEDS TO EMPTY HER BLADDER. PT FREQUENTLY REMINDED SHE HAS A CATHETER IN AND IT IS DRAINING THE URINE. PT ALSO STATED SOME DISCOMFORT IN HER LOWER BACK, UNABLE TO RATE PAIN WITH PAIN SCALE. CBI IS GOING 1500ML CREDITED ON ADMISSION. CONTINOUS FLUIDS STARTED 1/2NS WITH 20 POTASSIUM INFUSING AT 75ML/HR. PT'S DAUGHTERS AT THE BEDSIDE AT THIS TIME. CALLED PLACED TO LEEANN TO REQUEST PAIN MEDICATION, WAITING FOR CALL BACK.
--- NOTE | 2023-01-19 20:48 | NUR ---
Patient assessed at this time, see shift assessment, has slight dementia, A/Ox3 at this time, remains on oxygen at 2LPM via nasal prong, CBI running at slow rate with pinkish drainage, patient's daughter at bedside and told this nurse to give [place] just 1/2 tablet and melatonin 5mg, IV infusing well to right wilbur cath, dressing CDI, denies further needs, call light and personal items within reach.
--- NOTE | 2023-01-19 23:54 | NUR ---
Patient complained of pain to her bladder, didn't rate the pain, [place] 1/2 tab given.
--- NOTE | 2023-01-20 01:31 | NUR ---
Called Manuel the PA for hospitalist consult.
[2023-01-20 03:27] VITALS: BP 105/60; PULSE 75; TEMP 98.8
[2023-01-20 07:30] VITALS: BP 131/56; PULSE 89; TEMP 98.8
--- NOTE | 2023-01-20 07:30 | NUR ---
Shift assessment complete. VSS. Pt AOx3 but showed signs of frequent short-term memory impairment by asking the same question multiple times even after education was given. Pt receiving CBI with clear pink tinged urine in collection bag. Central line intact and infusing 1/2 NS & 20 mEq KCl at 75 mL/hr. No infiltration or phlebitis observed. Pt assisted to reposition in bed and left with call light in reach. No further needs at this time. .
--- NOTE | 2023-01-20 08:45 | NUR ---
PT RESTING IN BED WITH NO PAIN AND FAMILY AT BEDSIDE. CBI PRIMED AND PULLED PER ORDERS AND [address] PT UP TO BATHROOM WITH SHUFFLING GAIT. NO ISSUES URINATING. WILL CONTINUE TO MONITOR.
[2023-01-20 10:59] VITALS: BP 116/40; PULSE 86; TEMP 98.1
--- NOTE | 2023-01-20 11:01 | NUR ---
Pt in stable condition. Reported off to primary nurse. Pt assisted to bathroom and is now resting comfortably in chair. No further needs at this time.
--- NOTE | 2023-01-20 12:01 | NUR ---
Initial visit: [facility] stopped by room on rounds. Pt was resting and content. Pt has no needs right now. [facility] will follow up as needed.
--- NOTE | 2023-01-20 13:28 | NUR ---
PT AND FAMILY PROVIDED DISCHARGE INSTRUCTIONS, DISCUSSED FOLLOW UP APPOINTMETS, NEW MEDICATIONS, AND SIGNS OF BLOOD CLOTS IN URINE. [place] DE-ACCESSED. NO QUESTIONS AT THIS TIME. PT AND BELONGINGS ESCORTED OUT OF THE BUILDING AT THIS TIME.
== END 2023-01-20 13:28 | disposition home or self-care (01) ==
LOC: SDCO 07:47 → SURG 07:47 → SDCO 10:00 → SURG 11:47 → SDCO 01-20 13:28
DX: C67.2 Malignant neoplasm of lateral wall of bladder (principal); M54.50 Low back pain, unspecified; R35.0 Frequency of micturition; R39.15 Urgency of urination; J44.9 Chronic obstructive pulmonary disease, unspecified; R09.02 Hypoxemia; F03.90 Unspecified dementia, unspecified severity, without behavioral disturbance, psychotic disturbance, mood disturbance, and anxiety; Z87.891 Personal history of nicotine dependence; Z99.81 Dependence on supplemental oxygen
CPT/HCPCS: OP; J0690; J1100; J2405; J2704; J3010; J3480; J7120

== ENCOUNTER → 2023-01-20 | Outpatient (CLI) | payer MEDICARE ==
[~2023-01-20] MED LIST changes: +AMBIEN 5MG TABLE5 MG PO; +AMOXICILLIN 25250 MG PO; +AMOXICILLIN 50500 MG PO; +AZO-STANDARD95 MG PO; +CALCIUM 600MG+D1 TAB PO; +KEYTRUDA25 MG/ML IV; +LASIX 20MG TABL20 MG PO; +NORCO 325 MG-51 TAB PO; +VITAMIND3 5000 PO
[2023-01-20 11:03] LABS: MEAN CELL VOLUME 94 fl (80.0-100.0); MEAN CORPUSCULAR HGB CONC 32 g/dl (33.0-37.0); MEAN PLATELET VOLUME 10.2 fl (7.4-10.4); PLATELET COUNT 246 K/mm3 (130-400); RED BLOOD COUNT 3.27 M/mm3 (4.10-5.30); REDCELL DISTRIBUTION WIDTH-CV 12.9 % (11.5-14.5)
[2023-01-20 11:06] LABS: HEMATOCRIT 30.7 % (37.0-47.0); HEMOGLOBIN 9.7 g/dl (12.5-16.0); MEAN CORPUSCULAR HEMOGLOBIN 30 pg (27-31)
[2023-01-20 11:17] LABS: EOSINOPHIL 1 % (0-4); LYMPHOCYTE 12 % (20.0-51.0); NEUTROPHILS 83 % (42.0-75.2); PLATELET ESTIMATE NORMAL (NORMAL)
[2023-01-20 11:19] LABS: ALBUMIN 3.3 gm/dL (3.4-4.8); BILIRUBIN,TOTAL 0.3 mg/dL (0.2-1.2); CALCIUM 8.9 mg/dL (8.4-10.2); CREATININE, serum 2.04 mg/dL (0.57-1.11); POTASSIUM 4.7 mmol/L (3.5-4.5); TOTAL PROTEIN 6.3 gm/dL (6.2-8.1)
== END ==
LOC: COL.LAB 10:41
PROVIDERS: Internal Medicine
DX: C67.8 Malignant neoplasm of overlapping sites of bladder (principal)

== ENCOUNTER → 2023-02-11 | Outpatient (CLI) | payer MEDICARE ==
[2023-02-11 15:14] LABS: HEMOGLOBIN 10.4 g/dl (12.5-16.0); MEAN CELL VOLUME 91 fl (80.0-100.0); MEAN CORPUSCULAR HEMOGLOBIN 30 pg (27-31); MEAN CORPUSCULAR HGB CONC 33 g/dl (33.0-37.0); MEAN PLATELET VOLUME 10.4 fl (7.4-10.4); PLATELET COUNT 275 K/mm3 (130-400); RED BLOOD COUNT 3.45 M/mm3 (4.10-5.30); REDCELL DISTRIBUTION WIDTH-CV 13.2 % (11.5-14.5)
[2023-02-11 15:18] LABS: HEMATOCRIT 31.5 % (37.0-47.0)
[2023-02-11 15:19] LABS: ALBUMIN 3.4 gm/dL (3.4-4.8); BILIRUBIN,TOTAL 0.3 mg/dL (0.2-1.2); CALCIUM 9.3 mg/dL (8.4-10.2); CREATININE, serum 2.07 mg/dL (0.57-1.11); POTASSIUM 4.8 mmol/L (3.5-4.5); TOTAL PROTEIN 6.7 gm/dL (6.2-8.1)
[2023-02-11 15:39] LABS: THYROID STIMULATING HORMONE 1.599 uIU/mL (0.350-4.940)
[2023-02-11 15:54] LABS: BASOPHIL 1 % (0-2); EOSINOPHIL 4 % (0-4); NEUTROPHILS 73 % (42.0-75.2)
[2023-02-11 15:57] LABS: OVALOCYTES 1+; PLATELET ESTIMATE NORMAL (NORMAL)
[2023-02-11 16:00] LABS: LYMPHOCYTE 16 % (20.0-51.0)
[2023-02-14 08:13] LABS: PATHOLOGY DIFF REVIEW OK
== END ==
LOC: COL.LAB 14:28
PROVIDERS: Internal Medicine
DX: C67.9 Malignant neoplasm of bladder, unspecified (principal)

== ENCOUNTER → 2023-03-09 | Outpatient (CLI) | payer MEDICARE | LOC: COL.RAD 12:34 | DX: Z13.6 Encounter for screening for cardiovascular disorders (principal); C67.6 Malignant neoplasm of ureteric orifice ==

== ENCOUNTER → 2023-03-09 | Outpatient (CLI) | payer MEDICARE ==
[2023-03-09 14:10] LABS: ALBUMIN 3.4 gm/dL (3.4-4.8); BILIRUBIN,TOTAL 0.2 mg/dL (0.2-1.2); CALCIUM 9.3 mg/dL (8.4-10.2); CREATININE, serum 2.27 mg/dL (0.57-1.11); POTASSIUM 4.7 mmol/L (3.5-4.5); TOTAL PROTEIN 6.9 gm/dL (6.2-8.1)
== END ==
LOC: COL.LAB 12:32
PROVIDERS: Family Medicine
DX: R60.0 Localized edema (principal)